=== PATIENT | male | born 1985 | race Caucasian/White ===

== ENCOUNTER 2019-11-27 17:59 | Observation (INO) | payer BC ==
[2019-11-27] MEDS ORDERED: Sodium Chloride 0.9% 10 ML Syringe FLUSH PRN (18:38)
[2019-11-27 19:27] LABS: CHLORIDE,CL 103 mmol/L (98-107); SODIUM,NA 140 mmol/L (136-145)
--- NOTE | 2019-11-27 19:54 | EDM.PDOC ---
ED HPI GENERAL MEDICAL PROBLEM - General Chief Complaint: General Stated Complaint: TINGLING IN NECK, Time Seen by Provider: 11/27/19 18:30 Source of Information: Reports: Patient History Limitations: Reports: No Limitations - History of Present Illness INITIAL COMMENTS - FREE TEXT/NARRATIVE: Patient comes to ER via EMS from workplace after suddenly not feeling well. Reports having approx 30-60 sec of feeling lightheaded/world spinning along with left jaw and left upper chest feeling tingly and numb. This overall resolved. He also also complains of accompanying cotton mouth sensation, chest heaviness, muddled thinking, and feeling as though his heart was beating fast. These symptoms lasted longer. He continues to feel that his chest is heavy/harder to take breath and mouth still feels dry. No history of similar symptoms in past. Did recall sniffing a rag soaked with brake steam cleaner containing Toluene/Methanol/ Acetone (MSDS referenced) just prior to symptoms. Recalls having left sided chest pain that was worked up by Ariel last April/ May timeframe and reports that work up was completely unremarkable. Denies having pain complaint at this time. ROS Negative for any meds/new supplements. No recent illness/fevers/feelings of illness HEENT + for dry mouth. No other changes such as [place]/ear pain/sore throat/nasal congestion Denies neck pain Resp + for chest heaviness. Denies wheezing/pleuritic pain/cough/sputum production GI negative for any acute changes. No nausea/emesis/bowel changes. Patient is hungry. negative for any acute changes. MS negative for any weakness. Does feel that his hands are cooler than usual/ slightly pale in color. Neuro + for intermittent needles/pins sensation that most recent affected whole body briefly. Currently resolved. No current numbness/weakness. - Related Data Allergies Allergy/AdvReac Type Severity Reaction Status Date / Time Penicillins Allergy Rash Verified 11/27/19 18:28 Home Meds: Home Meds . [No Known Home Meds] 11/27/19 [History] Past Medical History - Past Health History Medical/Surgical History: Denies Medical/Surgical History Social & Family History - Family History Family Medical History: Noncontributory - Tobacco Use Smoking Status *Q: Never Smoker - Caffeine Use Caffeine Use: Reports: Coffee, Soda - Alcohol Use Alcohol Use History: No - Recreational Drug Use Recreational Drug Use: No Drug Use in Last 12 Months: No ED ROS GENERAL - Review of Systems Review Of Systems: Comprehensive ROS is negative, except as noted in HPI. ED EXAM, GENERAL - Physical Exam Exam: See Below Exam Limited By: No Limitations General Appearance: Alert, WD/WN, No Apparent Distress Eye Exam: Bilateral Eye: EOMI, PERRL Ears: Normal External Exam, Normal Canal, Hearing Grossly Normal, Normal TMs Nose: No: Nasal Deformity, Nasal Swelling, Nasal Drainage Throat/Mouth: Normal Inspection, Normal Lips, Normal Gums, Normal Oropharynx, Normal Voice, No Airway Compromise Head: Atraumatic, Normocephalic Neck: Normal Inspection, Supple, Non-Tender, Full Range of Motion. No: Lymphadenopathy (L), Lymphadenopathy (R) Respiratory/Chest: No Respiratory Distress, Lungs Clear, Normal Breath Sounds, No Accessory Muscle Use, Chest Non-Tender Cardiovascular: Normal Peripheral Pulses, Regular Rate, Rhythm, No Edema, No Murmur GI/Abdominal: Normal Bowel Sounds, Soft, Non-Tender, No Distention (Male) Exam: Deferred Rectal (Males) Exam: Deferred Back Exam: Normal Inspection. No: Muscle Spasm, Paraspinal Tenderness, Vertebral Tenderness Extremities: Normal Range of Motion, Non-Tender, No Pedal Edema, Normal Capillary Refill, Other (Hands feel slightly cool to touch) Neurological: Alert, Oriented, CN II-XII Intact, Normal Cognition, Normal Gait, Normal Reflexes, No Motor/Sensory Deficits Psychiatric: Normal Affect, Normal Mood Skin Exam: Warm, Dry, Intact, Normal Color (color appears within normal limits to examiner, however patient feels that his hand color is paler than usual. ) EKG INTERPRETATION EKG Date: 11/27/19 Time: 19:10 Rhythm: NSR Rate (Beats/Min): 84 [place]: Normal P-Wave: Present QRS: Normal ST-T: Normal QT: Normal Comparison: NA - No Prior EKG Course - Vital Signs Last Recorded V/S: Last Vital Signs Temp 36.9 C 11/27/19 18:14 Pulse 92 11/27/19 19:21 Resp 12 11/27/19 19:21 BP 122/74 11/27/19 19:21 Pulse Ox 98 11/27/19 19:21 - Orders/Labs/Meds Orders: Active Orders 24 hr Category Date Time Status Accu Check [Blood Glucose Check, Bedside] [RC] ONETIME Care 11/27/19 18:00 Active Cardiac Monitoring [RC] . DIRECTED Care 11/27/19 18:37 Active EKG Documentation Completion [RC] ASDIRECTED Care 11/27/19 18:48 Ordered Peripheral IV Care [RC] . DIRECTED Care 11/27/19 18:38 Active TSH ULTRASENSITIVE [CHEM] Stat Lab 11/27/19 19:03 Ordered Sodium Chloride 0.9% [Saline Flush] Med 11/27/19 18:38 Active 10 ml FLUSH ASDIRECTED PRN Peripheral IV Insertion Adult [OM.PC] Routine Oth 11/27/19 18:38 Ordered Medication Orders Sodium Chloride (Saline Flush) 10 ml FLUSH ASDIRECTED PRN PRN Reason: Keep Vein Open Labs: Laboratory Tests 11/27/19 11/27/19 11/27/19 Range/Units 18:25 18:25 18:25 WBC 10.5 H (4.0-10.2) K/uL RBC 4.88 (4.33-5.41) M/uL Hgb 14.6 (13.1-16.8) g/dL Hct 41.7 (39.0-49.0) % MCV 85.5 (84.0-98.0) fL MCH 29.9 (28.2-33.3) pg MCHC 35.0 (31.7-36.0) g/dL RDW 12.4 (11.2-14.1) % Plt Count 186 (150-350) K/uL Neut % (Auto) 77.3 (45.0-80.0) % Lymph % (Auto) 15.3 (10.0-50.0) % [place] % (Auto) 6.7 (2.0-14.0) % Eos % (Auto) 0.5 (0.0-5.0) % Baso % (Auto) 0.2 (0.0-2.0) % Neut # (Auto) 8.12 H (1.40-7.00) K/uL Lymph # (Auto) 1.61 (0.50-3.50) K/uL [place] # (Auto) 0.70 (0.00-1.00) K/uL Eos # (Auto) 0.05 (0.00-0.50) K/uL Baso # (Auto) 0.02 (0.00-0.20) K/uL D-Dimer, Quantitative < 100 (0-400) ng/mL Sodium 140 (136-145) mmol/L Potassium 3.4 L (3.5-5.1) mmol/L Chloride 103 (98-107) mmol/L Carbon Dioxide 26.2 (21.0-32.0) mmol/L BUN 15 (7-18) mg/dL Creatinine 0.87 (0.51-1.17) mg/dL Est Cr Clr Drug Dosing 131.32 mL/min Estimated GFR (MDRD) > 60 mL/min Glucose 143 H (74-106) mg/dL Calcium 8.3 L (8.5-10.1) mg/dL Magnesium 1.7 L (1.8-2.4) mg/dL Total Bilirubin 0.4 (0.2-1.0) mg/dL AST 31 (15-37) U/L ALT 53 (12-78) U/L Alkaline Phosphatase 54 (46-116) IU/L Troponin I 0.000 (0.000-0.056) ng/mL Total Protein 7.2 (6.4-8.2) g/dL Albumin 4.2 (3.4-5.0) g/dL Vitamin B12 799 (193-986) pg/mL Meds: Medications Generic Name Dose Route Start Last Admin Trade Name Freq PRN Reason Stop Dose Admin Sodium Chloride 10 ml 11/27/19 18:38 Saline Flush FLUSH ASDIRECTED PRN Keep Vein Open - Re-Assessments/Exams Free Text/Narrative Re-Assessment/Exam: 11/27/19 19:57 CBC/Chem/DDimer/Trop/Mg/TSH/B12 levels ordered and overall were within normal limits. Mag 0.1 below normal level as was K. WBC 10.5 Glu 143 EKG unremarkable. Patient felt somewhat better overall when he went to use restroom. [place] a bit lightheaded when standing. Given respiratory component (chest heaviness), perceived tachycardia, dry mouth sensation, and neuro complaints, differential included toxic exposure. MDSD of brake steam cleaner reviewed and it includes Toluene/Methanol/Acetone. Respiratory exposure to toluene can cause rapid changes that include respiratory tract irritation, confusion, difficulty breathing, lightheadedness, and drying of skin/mucosa. Methanol can also cause dizziness. This could be an explanation of patient's symptoms. Otherwise no other obvious cause identified at this point in time. Head CT was discussed given the neuro complaints, but patient declined. Plan at this time is to admit him to observation and keep him on telemetry. We will continue to observe for changes. IV hydration will be given in addition to PO doses of K and Mg. Recheck labs in AM. Departure - Departure Time of Disposition: 20:05 Disposition: Refer to Observation Condition: Good Clinical Impression: Exposure to potentially hazardous chemical - Discharge Information *PRESCRIPTION DRUG MONITORING PROGRAM REVIEWED*: Not Applicable *COPY OF PRESCRIPTION DRUG MONITORING REPORT IN PATIENT TARAN: Not Applicable Referrals: PCP,None [Primary Care Provider] - Sepsis Event Note - Evaluation Sepsis Screening Result: No Definite Risk - Focused Exam Vital Signs: Vital Signs Temp Pulse Resp BP Pulse Ox 11/27/19 19:21 92 12 122/74 98 11/27/19 19:00 85 16 122/72 99 11/27/19 18:45 17 L 17 122/73 100 11/27/19 18:30 88 17 124/68 100 11/27/19 18:15 89 15 129/76 100 11/27/19 18:14 36.9 C 88 18 135/72 100 Date Exam was Performed: 11/27/19 Time Exam was Performed: 19:42 - Problem List & Annotations (1) Exposure to potentially hazardous chemical SNOMED Code(s): 652872046557718 Code(s): Z77.098 - CONTACT W AND EXPSR TO OTH HAZARD, CHIEFLY NONMED, CHEMICALS Status: Acute Priority: High Onset Date: 11/27/19 Annotation/ Comment:: As above. Patient reports sniffing rag partially soaked in brake steam cleaner [facility] [id number] just prior to developing above complaints. Review of MSDS shows that many of his complaints are listed as possible effects of Toluene inhalation exposure. He also reports that this particular chemical has been banned in some areas. Plan at this time is to admit patient overnight and observe for changes. Further evaluation and testing as needed depending on patient's course. (2) Hypokalemia SNOMED Code(s): 55648729 Code(s): E87.6 - HYPOKALEMIA Status: Acute Priority: Low Annotation/ Comment:: Mild. Oral supplementation ordered. Recheck in AM (3) Hypomagnesemia SNOMED Code(s): 101544532 Code(s): E83.42 - HYPOMAGNESEMIA Status: Chronic Priority: Low Annotation/Comment:: Mild. Oral supplementation ordered with patient encouraged to start daily supplement after discharge from hospital. (4) Elevated glucose SNOMED Code(s): 64965732 Code(s): R73.09 - OTHER ABNORMAL GLUCOSE Status: Acute Priority: Low Annotation/Comment:: Recheck in AM. No history of diabetes/glucose intolerance. - Problem List Review Problem List Initiated/Reviewed/Updated: Yes - My Orders Last 24 Hours: My Active Orders 11/27/19 18:00 Accu Check [Blood Glucose Check, Bedside] [RC] ONETIME 11/27/19 18:37 Cardiac Monitoring [RC] . DIRECTED 11/27/19 18:38 Peripheral IV Care [RC] . DIRECTED Sodium Chloride 0.9% [Saline Flush] 10 ml FLUSH ASDIRECTED PRN Peripheral IV Insertion Adult [OM.PC] Routine 11/27/19 18:48 EKG Documentation Completion [RC] ASDIRECTED 11/27/19 19:03 TSH ULTRASENSITIVE [CHEM] Stat - Assessment/Plan Admission H&P: Please use this note as an admission H&P Last 24 Hours: My Active Orders 11/27/19 18:00 Accu Check [Blood Glucose Check, Bedside] [RC] ONETIME 11/27/19 18:37 Cardiac Monitoring [RC] . DIRECTED 11/27/19 18:38 Peripheral IV Care [RC] . DIRECTED Sodium Chloride 0.9% [Saline Flush] 10 ml FLUSH ASDIRECTED PRN Peripheral IV Insertion Adult [OM.PC] Routine 11/27/19 18:48 EKG Documentation Completion [RC] ASDIRECTED 11/27/19 19:03 TSH ULTRASENSITIVE [CHEM] Stat Assessment:: As above. Patient stable and suitable for general supervision. Plan: as above. Anticipate discharge in AM if patient shows good improvement overnight. to assume patient's care in AM
[2019-11-27] MEDS ORDERED: Ondansetron 4 MG/2 ML SDV IVPUSH PRN (20:14)
[2019-11-27] MEDS ORDERED: Acetaminophen 325 MG Tab PO PRN (20:14)
[2019-11-27] MEDS: Meclizine 25 MG Tab PO ONE (21:17)
[2019-11-27] MEDS: Potassium Chloride 20 MEQ Tab.ER PO ONE (21:17)
[2019-11-27] MEDS: Magnesium Oxide 400 MG Tab PO ONE (21:17)
[2019-11-27] MEDS: Sodium Chloride 0.9% 1,000 ML IV ONE (21:22)
[2019-11-27] MEDS: Aluminum Hydroxide/Magnesium Hydroxide/Simethicone Susp 30 ML Cup PO PRN (23:44)
[2019-11-28 07:57] LABS: CHLORIDE,CL 106 mmol/L (98-107); SODIUM,NA 141 mmol/L (136-145)
--- NOTE | 2019-11-28 08:47 | PCM.DCSUM1 ---
Discharge Summary - Hospital Course HPI Initial Comments: See emergency room note/admission H&P Brief History: See emergency room note/admission H&P Diagnosis: Stroke: No Modified Chaffee Scale: No Symptoms at All Modified Chaffee Scale Score: 0 - Discharge Data Discharge Date: 11/28/19 Discharge Disposition: Home, Self-Care 01 Condition: Good - Referral to Home Health Primary Care Physician: PCP None - Discharge Diagnosis/Problem(s) (1) Exposure to potentially hazardous chemical SNOMED Code(s): 613590713905312 ICD Code: Z77.098 - CONTACT W AND EXPSR TO OTH HAZARD, CHIEFLY NONMED, CHEMICALS Status: Acute Priority: High Current Visit: No Onset Date: Problem Details: The patient is completely nonsymptomatic at this time. 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 and does not need a work excuse. He responded well to IV hydration with no chest pain or anginal type symptoms throughout this hospitalization. Patient reports sniffing rag partially soaked in brake vacuum cleaner mechanic [facility] [id number] just prior to developing nonspecific chest discomfort, dizziness, etc. as per emergency room note. Review of MSDS by Dr. Garcia shows that many of his complaints are listed as possible effects of Toluene inhalation exposure. He also reports that this particular chemical has been banned in some areas. Further evaluation and testing as needed depending on patient's course. Note resolution at discharge of nonspecific borderline leukocytosis likely secondary to stress reaction prior to admission. (2) Elevated glucose SNOMED Code(s): 26589881 ICD Code: R73.09 - OTHER ABNORMAL GLUCOSE Status: Acute Priority: Medium Current Visit: Yes Problem Details: Elevated random glucose on admission. Fasting glucose this morning was normal. Patient was advised to consider update of his yearly physical exam as per discharge instructions. (3) Hypokalemia SNOMED Code(s): 50805263 ICD Code: E87.6 - HYPOKALEMIA Status: Acute Priority: Medium Current Visit: Yes Onset Date: 11/27/19 Problem Details: No recent emesis, diarrhea , etc. which would explain patient's hypokalemia and/or hypomagnesemia. High- dose oral supplementation given during this hospitalization with normal potassium and magnesium levels at discharge. (4) Hypomagnesemia SNOMED Code(s): 467592854 ICD Code: E83.42 - HYPOMAGNESEMIA Status: Acute Priority: Medium Current Visit: Yes Onset Date: 11/27/19 Problem Details: High dose oral supplementation given during this hospitalization with normal magnesium level at discharge. Consider close observation by regular provider at time of his routine HCM as per discharge instructions. (5) PVCs (premature ventricular contractions) SNOMED Code(s): 61504108 ICD Code: I49.3 - VENTRICULAR PREMATURE DEPOLARIZATION Status: Acute Priority: Medium Current Visit: Yes Onset Date: 11/27/19 Problem Details: Nonsymptomatic PVCs. Observe for now. (6) Hypocalcemia SNOMED Code(s): 6399318 ICD Code: E83.51 - HYPOCALCEMIA Status: Acute Priority: Medium Current Visit: Yes Onset Date: 11/27/19 Problem Details: Normal at discharge. IV fluids given during this hospitalization as above. Observe for now. - Patient Summary/Data Operative Procedure(s) Performed: None Complications: None Consults: None Labs Pending at D/C: None Recommended Follow-up Testing/Procedures: As per discharge instructions Planned Operative Procedure(s) after DC: None Hospital Course: The patient was placed in observation status on telemetry with quick resolution of his above symptoms with IV hydration, etc. Telemetry showed no significant abnormalities with only very occasional nonsymptomatic PVCs. Patient responded well to oral potassium and magnesium supplementation as above. No complications during this hospitalization. - Patient Instructions Diet: Regular Diet as Tolerated Activity: As Tolerated Driving: May Drive Today Showering/Bathing: May Shower Notify Provider of: Fever, Increased Pain, Nausea and/or Vomiting Other/Special Instructions: 1. Follow up with your regular provider in 10-14 days as needed, if symptoms persist. Bring these discharge instructions with you to that visit. 2. Recommend update of your yearly preventative healthcare physical exam, including CBC, comprehensive metabolic panel, uric acid level, magnesium level, glycosylated hemoglobin, and fasting lipid profile, MERVAT. 3. Immediately after this visit verify that your cellular telephone's voicemail has been activated and is empty. Also verify that your home telephone's answering machine is operating properly and has space to receive messages. Note that it is sometimes necessary for us to be able to contact you at a later date to discuss your medical care. 4. Please remember that we are ALWAYS here for you and want to answer any questions you may have. Feel free to call the hospital any time and we call you back MERVAT. - Discharge Plan *PRESCRIPTION DRUG MONITORING PROGRAM REVIEWED*: Not Applicable *COPY OF PRESCRIPTION DRUG MONITORING REPORT IN PATIENT TARAN: Not Applicable Home Medications: Home Meds . [No Known Home Meds] 11/27/19 [History] Oxygen Therapy Mode: Room Air Patient Handouts: Nonspecific Chest Pain, [id number] Forms: ED Department Discharge Referrals: PCP,None [Primary Care Provider] - - Discharge Summary/Plan Comment DC Time >30 min.: Yes (Coordination of care ) Discharge Summary/Plan Comment: As above. Extensive precautions were given to the patient, who is in agreement with the treatment plan. See Patient Instructions for further treatment and plan. - General Info Date of Service: 11/28/19 Admission Dx/Problem (Free Text: Toxic chemical exposure Functional Status: Reports: Pain Controlled, Tolerating Diet, Ambulating, Urinating. Denies: New Symptoms, Incentive Spirometry Numeric/FACES Score: 0 - Review of Systems General: Reports: No Symptoms. Denies: Fever, Weakness, Fatigue, Malaise, Chills, Night Sweats, Appetite (Appetite good) HEENT: Reports: No Symptoms. Denies: Dysphasia, Ear Pain, Eye Pain, Headaches, Post Nasal Drip, Sinus Congestion, Sore Throat, Rhinitis, Visual Changes Pulmonary: Reports: No Symptoms. Denies: Shortness of Breath, Pleuritic Chest Pain, Sputum, Hemoptysis, Wheezing Cardiovascular: Reports: No Symptoms. Denies: Chest Pain, Palpitations, Dyspnea on Exertion, Orthopnea, PND, Edema, Lightheadedness Gastrointestinal: Reports: No Symptoms, Other (Normal bowel movement during this hospitalization). Denies: Abdominal Pain, Constipation, Decreased Appetite , Diarrhea, Difficulty Swallowing, Flatus, Hematochezia, Melena, Nausea, Vomiting Genitourinary: Reports: No Symptoms. Denies: Dysuria, Frequency, Burning, Pain , Urgency, Incontinence, Hematuria, Retention, Flank Pain Musculoskeletal: Reports: No Symptoms. Denies: Neck Pain, Shoulder Pain, Arm Pain, Back Pain, Leg Pain Skin: Reports: No Symptoms. Denies: Diaphoresis, Bruising, Pruritis Neurological: Reports: No Symptoms. Denies: Confusion, Dizziness, Headache, Numbness, Paresthesia, Tingling, Weakness Psychiatric: Reports: No Symptoms. Denies: Confusion, Depression, Anxiety, Agitation, Cravings, Hallucinations - Patient Data Vitals - Most Recent: Last Vital Signs Temp 36.7 C 11/28/19 07:45 Pulse 74 11/28/19 07:45 Resp 16 11/28/19 07:45 BP 121/84 11/28/19 07:45 Pulse Ox 98 11/28/19 07:45 Vital Signs - 24 hr 11/27/19 11/27/19 11/27/19 18:14 18:15 18:30 Temperature [ 36.9 C Oral] Temperature [ Temporal] Pulse, 88 89 88 Peripheral [ Right Pulse Oximetry] Respiratory 18 15 17 Rate Blood Pressure [Left Upper Arm ] Blood Pressure 135/72 129/76 124/68 [Right Upper Arm] O2 Sat by Pulse 100 100 100 Oximetry 11/27/19 11/27/19 11/27/19 18:45 19:00 19:21 Temperature [ Oral] Temperature [ Temporal] Pulse, 17 L 85 92 Peripheral [ Right Pulse Oximetry] Respiratory 17 16 12 Rate Blood Pressure [Left Upper Arm ] Blood Pressure 122/73 122/72 122/74 [Right Upper Arm] O2 Sat by Pulse 100 99 98 Oximetry 11/27/19 11/27/19 11/27/19 19:30 19:45 20:00 Temperature [ Oral] Temperature [ Temporal] Pulse, 83 81 88 Peripheral [ Right Pulse Oximetry] Respiratory 13 19 18 Rate Blood Pressure [Left Upper Arm ] Blood Pressure 114/75 109/64 116/77 [Right Upper Arm] O2 Sat by Pulse 99 100 100 Oximetry 11/27/19 11/27/19 11/27/19 20:15 20:32 23:52 Temperature [ 37.0 C Oral] Temperature [ 37.2 C Temporal] Pulse, 83 73 Peripheral [ Right Pulse Oximetry] Respiratory 19 16 Rate Blood Pressure 110/67 [Left Upper Arm ] Blood Pressure 119/70 [Right Upper Arm] O2 Sat by Pulse 99 98 Oximetry 11/28/19 11/28/19 04:00 07:45 Temperature [ Oral] Temperature [ 36.8 C 36.7 C Temporal] Pulse, 74 74 Peripheral [ Right Pulse Oximetry] Respiratory 16 16 Rate Blood Pressure 116/75 121/84 [Left Upper Arm ] Blood Pressure [Right Upper Arm] O2 Sat by Pulse 98 98 Oximetry Weight - Most Recent: 78.925 kg I&O - Last 24 hours: Intake & Output 11/27/19 11/28/19 11/28/19 22:59 06:59 14:59 Intake Total 540 1400 340 Output Total 600 700 Balance -60 700 340 Imaging Impressions - Last 24 hrs: quality assurance monitor final showed normal sinus rhythm in the 80s to 90s with only very occasional PVCs with no other significant cardiac arrhythmia. EKG on admission (11/27/19) showed no evidence of acute ischemic changes with normal sinus rhythm and possible borderline pulmonary hypertension by EKG. Lab Results - Last 24 hrs: Laboratory Results - last 24 hr 11/27/19 11/27/19 11/27/19 Range/Units 18:25 18:25 18:25 WBC 10.5 H (4.0-10.2) K/uL RBC 4.88 (4.33-5.41) M/uL Hgb 14.6 (13.1-16.8) g/dL Hct 41.7 (39.0-49.0) % MCV 85.5 (84.0-98.0) fL MCH 29.9 (28.2-33.3) pg MCHC 35.0 (31.7-36.0) g/dL RDW 12.4 (11.2-14.1) % Plt Count 186 (150-350) K/uL Neut % (Auto) 77.3 (45.0-80.0) % Lymph % (Auto) 15.3 (10.0-50.0) % [place] % (Auto) 6.7 (2.0-14.0) % Eos % (Auto) 0.5 (0.0-5.0) % Baso % (Auto) 0.2 (0.0-2.0) % Neut # (Auto) 8.12 H (1.40-7.00) K/uL Lymph # (Auto) 1.61 (0.50-3.50) K/uL [place] # (Auto) 0.70 (0.00-1.00) K/uL Eos # (Auto) 0.05 (0.00-0.50) K/uL Baso # (Auto) 0.02 (0.00-0.20) K/uL D-Dimer, Quantitative < 100 (0-400) ng/mL Sodium 140 (136-145) mmol/L Potassium 3.4 L (3.5-5.1) mmol/L Chloride 103 (98-107) mmol/L Carbon Dioxide 26.2 (21.0-32.0) mmol/L BUN 15 (7-18) mg/dL Creatinine 0.87 (0.51-1.17) mg/dL Est Cr Clr Drug Dosing 131.32 mL/min Estimated GFR (MDRD) > 60 mL/min Glucose 143 H (74-106) mg/dL Hemoglobin A1c (4.3-5.7) % Calcium 8.3 L (8.5-10.1) mg/dL Magnesium 1.7 L (1.8-2.4) mg/dL Total Bilirubin 0.4 (0.2-1.0) mg/dL AST 31 (15-37) U/L ALT 53 (12-78) U/L Alkaline Phosphatase 54 (46-116) IU/L Troponin I 0.000 (0.000-0.056) ng/mL Total Protein 7.2 (6.4-8.2) g/dL Albumin 4.2 (3.4-5.0) g/dL Vitamin B12 799 (193-986) pg/mL TSH, Ultra Sensitive (0.358-3.740) mIU/mL 11/27/19 11/28/19 11/28/19 Range/Units 19:03 07:15 07:15 WBC (4.0-10.2) K/uL RBC (4.33-5.41) M/uL Hgb (13.1-16.8) g/dL Hct (39.0-49.0) % MCV (84.0-98.0) fL MCH (28.2-33.3) pg MCHC (31.7-36.0) g/dL RDW (11.2-14.1) % Plt Count (150-350) K/uL Neut % (Auto) (45.0-80.0) % Lymph % (Auto) (10.0-50.0) % [place] % (Auto) (2.0-14.0) % Eos % (Auto) (0.0-5.0) % Baso % (Auto) (0.0-2.0) % Neut # (Auto) (1.40-7.00) K/uL Lymph # (Auto) (0.50-3.50) K/uL [place] # (Auto) (0.00-1.00) K/uL Eos # (Auto) (0.00-0.50) K/uL Baso # (Auto) (0.00-0.20) K/uL D-Dimer, Quantitative (0-400) ng/mL Sodium 141 (136-145) mmol/L Potassium 4.2 (3.5-5.1) mmol/L Chloride 106 (98-107) mmol/L Carbon Dioxide 28.1 (21.0-32.0) mmol/L BUN 10 (7-18) mg/dL Creatinine 0.78 (0.51-1.17) mg/dL Est Cr Clr Drug Dosing 146.47 mL/min Estimated GFR (MDRD) > 60 mL/min Glucose 89 (74-106) mg/dL Hemoglobin A1c 5.0 (4.3-5.7) % Calcium 8.8 (8.5-10.1) mg/dL Magnesium (1.8-2.4) mg/dL Total Bilirubin (0.2-1.0) mg/dL AST (15-37) U/L ALT (12-78) U/L Alkaline Phosphatase (46-116) IU/L Troponin I 0.000 (0.000-0.056) ng/mL Total Protein (6.4-8.2) g/dL Albumin (3.4-5.0) g/dL Vitamin B12 (193-986) pg/mL TSH, Ultra Sensitive 1.053 (0.358-3.740) mIU/mL 11/28/19 Range/Units 07:15 WBC 7.1 (4.0-10.2) K/uL RBC 4.92 (4.33-5.41) M/uL Hgb 14.7 (13.1-16.8) g/dL Hct 42.7 (39.0-49.0) % MCV 86.8 (84.0-98.0) fL MCH 29.9 (28.2-33.3) pg MCHC 34.4 (31.7-36.0) g/dL RDW 12.7 (11.2-14.1) % Plt Count 160 (150-350) K/uL Neut % (Auto) 55.9 (45.0-80.0) % Lymph % (Auto) 34.7 (10.0-50.0) % [place] % (Auto) 8.3 (2.0-14.0) % Eos % (Auto) 0.7 (0.0-5.0) % Baso % (Auto) 0.4 (0.0-2.0) % Neut # (Auto) 3.97 (1.40-7.00) K/uL Lymph # (Auto) 2.47 (0.50-3.50) K/uL [place] # (Auto) 0.59 (0.00-1.00) K/uL Eos # (Auto) 0.05 (0.00-0.50) K/uL Baso # (Auto) 0.03 (0.00-0.20) K/uL D-Dimer, Quantitative (0-400) ng/mL Sodium (136-145) mmol/L Potassium (3.5-5.1) mmol/L Chloride (98-107) mmol/L Carbon Dioxide (21.0-32.0) mmol/L BUN (7-18) mg/dL Creatinine (0.51-1.17) mg/dL Est Cr Clr Drug Dosing mL/min Estimated GFR (MDRD) mL/min Glucose (74-106) mg/dL Hemoglobin A1c (4.3-5.7) % Calcium (8.5-10.1) mg/dL Magnesium (1.8-2.4) mg/dL Total Bilirubin (0.2-1.0) mg/dL AST (15-37) U/L ALT (12-78) U/L Alkaline Phosphatase (46-116) IU/L Troponin I (0.000-0.056) ng/mL Total Protein (6.4-8.2) g/dL Albumin (3.4-5.0) g/dL Vitamin B12 (193-986) pg/mL TSH, Ultra Sensitive (0.358-3.740) mIU/mL LELO Results - Last 24 hrs: None Med Orders - Current: Current Medications Acetaminophen (Tylenol) 650 mg PO Q4H PRN PRN Reason: Pain (Mild 1-3)/fever Al Hydroxide/Mg Hydroxide (Mag-Al Plus) 30 ml PO QID PRN PRN Reason: Indigestion Last Admin: 11/27/19 23:44 Dose: 30 ml Ondansetron HCl (Zofran) 4 mg IVPUSH Q6H PRN PRN Reason: Nausea/Vomiting Sodium Chloride (Saline Flush) 10 ml FLUSH ASDIRECTED PRN PRN Reason: Keep Vein Open Discontinued Medications Sodium Chloride (Normal Saline) 1,000 mls @ 150 mls/hr IV BOLUS ONE Stop: 11/28/19 02:57 Last Admin: 11/27/19 21:22 Dose: 150 mls/hr Magnesium Oxide (Magnesium Oxide) 800 mg PO ONETIME ONE Stop: 11/27/19 20:20 Last Admin: 11/27/19 21:17 Dose: 800 mg Meclizine HCl (Antivert) 25 mg PO ONETIME ONE Stop: 11/27/19 20:19 Last Admin: 11/27/19 21:17 Dose: 25 mg Potassium Chloride (Klor-Con M20) 40 meq PO ONETIME ONE Stop: 11/27/19 20:20 Last Admin: 11/27/19 21:17 Dose: 40 meq - Exam Quality Assessment: Reports: DVT Prophylaxis. Denies: Supplemental Oxygen, Central Line/PICC, Urine Catheter, Skin Breakdown, Restraints General: Reports: Alert, Oriented, Cooperative, No Acute Distress HEENT: Reports: Pupils Equal, Pupils Reactive, EOMI, Mucous Membr. Moist/[place] Neck: Reports: Supple, Trachea Midline, No JVD, No Thyromegaly. Denies: Lymphadenopathy Lungs: Reports: Clear to Auscultation, Normal Respiratory Effort. Denies: Rub Cardiovascular: Reports: Regular Rate, Regular Rhythm, No Murmurs. Denies: Gallops, Rubs GI/Abdominal Exam: Normal Bowel Sounds, Soft, Non-Tender, No Organomegaly, No Distention, No Abnormal Bruit, No Mass. No: Guarding (Male) Exam: Deferred Rectal (Males) Exam: Deferred Back Exam: Reports: Normal Inspection, Full Range of Motion. Denies: CVA Tenderness (L), CVA Tenderness (R), Muscle Spasm Extremities: Normal Inspection, Normal Range of Motion, Non-Tender, No Pedal Edema, Normal Capillary Refill. No: Carroll's Sign Skin: Reports: Warm, Dry, Intact. Denies: Rash, Ecchymosis Neurological: Reports: No New Focal Deficit, Other (Negative Babinski's) Psy/Mental Status: Reports: Alert, Normal Affect, Normal Mood. Denies: Agitated , Hallucinations, Withdrawal Symptoms
== END 2019-11-28 10:10 | disposition home or self-care (01) ==
LOC: LL.ED 17:59 → UNDOADMOB 19:40 → LL.MS 19:40 → UNDODISOB 11-28 10:10
PROVIDERS: ADMIT Emergency Medicine; ATTEND Family Medicine
DX: Z77.098 Contact with and (suspected) exposure to other hazardous, chiefly nonmedicinal, chemicals (principal); R73.09 Other abnormal glucose; E87.6 Hypokalemia; E83.42 Hypomagnesemia; I49.3 Ventricular premature depolarization; E83.51 Hypocalcemia; Z88.0 Allergy status to penicillin
CPT/HCPCS: 36415; 80048; 80053; 82607; 83036; 83735; 84443; 84484; 85025; 85379; 93005; A9270; J7030; 96360; 96361; 99285-25; G0378